=== PATIENT | female | born 1995 | race Caucasian/White ===

== ENCOUNTER 2017-07-29 16:51 | Emergency (ER) | payer MEDICAID ==
[~2017-07-29] VITALS: Ht 165.1 cm; Wt 131.5 kg
[~2017-07-29 16:51] MED LIST: PRENCAP61 PO
[2017-07-29 17:32] LABS: Urine Bilirubin Negative (Negative); Urine Blood Negative /uL (Negative); Urine Color Yellow (Yellow); Urine Glucose Normal (Normal); Urine Ketone Negative (Negative); Urine Mucus FEW (None Seen); Urine Nitrite Negative (Negative); Urine RBC <1 /hpf (0 - 4); Urine Squamous Epithelial Cell FEW /hpf (<5); Urine Urobilinogen Normal (Negative); Urine pH 5.5 (5.0-8.0)
[2017-07-29 18:20] LABS: Basophils # (auto) 0.2 uL; Basophils % (auto) 1.4 % (0.0-2.0); Eosinophils # (auto) 0.7 uL; Eosinophils % (auto) 6.7 % (0.0-7.0); Hematocrit 37.3 % (36.0-46.0); Hemoglobin 12.2 g/dL (12.2-16.2); Lymphocytes # (auto) 2.6 uL; Mean Corpuscular Hemoglobin 26.7 pg (28.0-32.0); Mean Corpuscular Hgb Conc. 32.7 g/dL (32.0-36.0); Mean Corpuscular Volume 81.5 fL (80.0-100.0); Mean Platelet Volume 7.6 fL (6.9-10.8); Monocytes # (auto) 0.6 uL; Monocytes % (auto) 5.5 % (0.0-12.0); Neutrophils # (auto) 6.8 uL; Neutrophils % (auto) 62.4 % (37.0-80.0); Nucleated Red Blood Cells % 0.1 %; Platelet Count (auto) 248 10^3/uL (140-450); Red Cell Distribution Width 15.1 % (11.8-14.3); White Blood Cell 10.9 10^3/uL (4.4-10.8)
[2017-07-29 18:37] LABS: Albumin 3.9 g/dL (3.4-5.0); BUN/Creatinine Ratio 9.2; Bilirubin, Total 0.4 mg/dL (0.2-1.0); Calcium 8.9 mg/dL (8.5-10.1); Potassium 3.7 mmol/L (3.5-5.1)
[2017-07-30 01:17] VITALS: BP 121/80
== END 2017-07-30 02:07 | disposition home or self-care (01) ==
LOC: ER 16:59
DX: K52.9 Noninfective gastroenteritis and colitis, unspecified (principal); I10 Essential (primary) hypertension; Z87.440 Personal history of urinary (tract) infections; Z88.1 Allergy status to other antibiotic agents
CPT/HCPCS: 36415; 74176; 80053; 81001; 81025; 84702; 85025

== ENCOUNTER 2018-01-21 15:36 | Emergency (ER) | payer MEDICAID ==
[~2018-01-21] VITALS: Ht 165.1 cm; Wt 114.3 kg
[2018-01-21 15:59] VITALS: BP 143/89
[2018-01-21 16:55] LABS: Urine Bacteria NONE SEEN /hpf (None Seen); Urine Blood Negative /uL (Negative); Urine WBC 14 /hpf (0 - 5)
== END 2018-01-21 18:11 | disposition home or self-care (01) ==
LOC: ER 15:42
DX: S39.012A Strain of muscle, fascia and tendon of lower back, initial encounter (principal); N39.0 Urinary tract infection, site not specified; E11.9 Type 2 diabetes mellitus without complications; I10 Essential (primary) hypertension; Z88.8 Allergy status to other drugs, medicaments and biological substances; X50.0XXA Overexertion from strenuous movement or load, initial encounter; Y93.89 Activity, other specified; Y92.89 Other specified places as the place of occurrence of the external cause; Y99.8 Other external cause status
CPT/HCPCS: 36415; 81001; 82962; 84702

== ENCOUNTER 2018-10-16 22:00 | Emergency (ER) | payer MEDICAID ==
[~2018-10-16] VITALS: Ht 162.6 cm; Wt 106.6 kg
[2018-10-16] MEDS ORDERED: SODIUM CHLORIDE 0.9% 1,000 ML IV ONE (23:15)
[2018-10-16] MEDS ORDERED: InsuLIN REG 1unit/0.01ml Soln (100units/ml) IV ONE ×2 (23:15)
[2018-10-16 23:18] LABS: Basophils # (auto) 0.1 uL; Basophils % (auto) 1.2 % (0.0-2.0); Eosinophils # (auto) 0.4 uL; Eosinophils % (auto) 4.4 % (0.0-7.0); Hematocrit 41.6 % (36.0-46.0); Hemoglobin 13.7 g/dL (12.2-16.2); Lymphocytes # (auto) 2.4 uL; Lymphocytes % (auto) 28.5 % (10.0-50.0); Mean Corpuscular Hemoglobin 27.7 pg (28.0-32.0); Mean Corpuscular Volume 83.8 fL (80.0-100.0); Monocytes # (auto) 0.3 uL; Monocytes % (auto) 3.9 % (0.0-12.0); Neutrophils # (auto) 5.2 uL; Platelet Count (auto) 243 10^3/uL (140-450); Red Blood Cells 4.96 10^6/uL (4.0-5.20); Red Cell Distribution Width 13.8 % (11.8-14.3); White Blood Cell 8.3 10^3/uL (4.4-10.8)
[2018-10-16 23:34] LABS: Albumin 3.9 g/dL (3.4-5.0); BUN/Creatinine Ratio 11.8; Calcium 8.9 mg/dL (8.5-10.1); Potassium 3.9 mmol/L (3.5-5.1)
[2018-10-16 23:37] LABS: Bilirubin, Total 0.3 mg/dL (0.2-1.0)
[2018-10-17 00:16] LABS: Urine Bacteria FEW /hpf (None Seen); Urine Blood Negative /uL (Negative); Urine Specific Gravity 1.024 (1.001-1.035); Urine WBC 1 /hpf (0 - 5)
[2018-10-17 03:06] VITALS: BP 119/81
== END 2018-10-17 03:27 | disposition home or self-care (01) ==
LOC: ER 22:04
DX: R10.9 Unspecified abdominal pain (principal); R94.5 Abnormal results of liver function studies; E11.9 Type 2 diabetes mellitus without complications; I10 Essential (primary) hypertension; Z88.8 Allergy status to other drugs, medicaments and biological substances
CPT/HCPCS: 36415; 76705; 80053; 80320; 81001; 82010; 82962; 85025; 96374; 99284; J1815; J7030

== ENCOUNTER 2019-03-06 18:58 | Emergency (ER) | payer MEDICAID ==
[~2019-03-06] VITALS: Ht 162.6 cm; Wt 115.7 kg
[2019-03-06 20:56] VITALS: BP 131/82
== END 2019-03-06 21:34 | disposition home or self-care (01) ==
LOC: ER 18:58
DX: S63.501A Unspecified sprain of right wrist, initial encounter (principal); W18.39XA Other fall on same level, initial encounter; Y93.89 Activity, other specified; Y92.89 Other specified places as the place of occurrence of the external cause; Y99.8 Other external cause status; M77.9 Enthesopathy, unspecified; E11.9 Type 2 diabetes mellitus without complications; I10 Essential (primary) hypertension; Z87.440 Personal history of urinary (tract) infections; Z88.1 Allergy status to other antibiotic agents
CPT/HCPCS: 29125; 73110; 81002; 81025; 82962

== ENCOUNTER 2021-03-13 20:37 | Emergency (ER) | payer MEDICAID ==
[~2021-03-13] VITALS: Ht 162.6 cm; Wt 95.3 kg
[2021-03-13 22:53] LABS: Calcium 9.4 mg/dL (8.5-10.1)
[2021-03-13 23:07] LABS: Bilirubin, Total 0.2 mg/dL (0.2-1.0); Total Protein 8.4 g/dL (6.4-8.2)
[2021-03-13 23:23] LABS: Lymphocytes # (auto) 3.6 10 ^3/uL (0.4-5.4); Mean Corpuscular Volume 75.1 fL (80.0-100.0)
[2021-03-13 23:25] LABS: Basophils # (auto) 0.1 10 ^3/uL (0-0.2); Basophils % (auto) 1.1 % (0.0-2.0); Eosinophils # (auto) 0.5 10 ^3/uL (0-0.8); Eosinophils % (auto) 5.1 % (0.0-7.0); Hematocrit 38.1 % (36.0-46.0); Hemoglobin 12.8 g/dL (12.2-16.2); Lymphocytes % (auto) 33.4 % (10.0-50.0); Mean Corpuscular Hemoglobin 25.3 pg (28.0-32.0); Mean Corpuscular Hgb Conc. 33.7 g/dL (32.0-36.0); Monocytes # (auto) 0.5 10 ^3/uL (0-1.3); Monocytes % (auto) 4.5 % (0.0-12.0); Neutrophils % (auto) 55.9 % (37.0-80.0); Nucleated Red Blood Cells % 0.1 %; Platelet Count (auto) 276 10^3/uL (140-450); Red Blood Cells 5.07 10^6/uL (4.0-5.20); Red Cell Distribution Width 15.5 % (11.8-14.3); White Blood Cell 10.7 10^3/uL (4.4-10.8)
[2021-03-13 23:36] LABS: INR 0.95 (0.9-1.15)
[2021-03-13 23:37] LABS: BUN/Creatinine Ratio 15.5
[2021-03-14] MEDS ORDERED: InsuLIN REG 1unit/0.01ml Soln (100units/ml) IV ONE (01:15)
[2021-03-14] MEDS ORDERED: ACETAMINOPHEN 325 MG TAB PO ONE (01:15)
[2021-03-14] MEDS ORDERED: KETOROLAC TROMETH 30 MG/ML 1ML VIAL IV ONE (01:30)
[2021-03-14] MEDS ORDERED: ONDANSETRON HCL 4 MG/2 ML VIAL IV ONE (02:15)
[2021-03-14 04:01] VITALS: BP 115/50
== END 2021-03-14 04:21 | disposition home or self-care (01) ==
LOC: ER 20:44
DX: N93.9 Abnormal uterine and vaginal bleeding, unspecified (principal); E11.65 Type 2 diabetes mellitus with hyperglycemia; R42 Dizziness and giddiness; I10 Essential (primary) hypertension; Z88.1 Allergy status to other antibiotic agents; Z79.899 Other long term (current) drug therapy; Z87.440 Personal history of urinary (tract) infections; Z98.890 Other specified postprocedural states
CPT/HCPCS: 36415; 80053; 82962; 83605; 83690; 84702; 85025; 85610; 96374; 96375; 99284; J1815; J1885; J2405; J7030

== ENCOUNTER 2021-03-18 21:05 | Emergency (ER) | payer MEDICAID ==
[~2021-03-18] VITALS: Ht 162.6 cm; Wt 95.7 kg
[2021-03-18 22:08] LABS: Basophils # (auto) 0.1 10 ^3/uL (0-0.2); Eosinophils # (auto) 0.5 10 ^3/uL (0-0.8); Eosinophils % (auto) 5.1 % (0.0-7.0); Hemoglobin 12.2 g/dL (12.2-16.2); Monocytes # (auto) 0.5 10 ^3/uL (0-1.3); Monocytes % (auto) 5.1 % (0.0-12.0); Neutrophils # (auto) 5.5 10 ^3/uL (1.6-8.6)
[2021-03-18 22:10] LABS: Basophils % (auto) 0.9 % (0.0-2.0); Hematocrit 37.4 % (36.0-46.0); Lymphocytes # (auto) 2.9 10 ^3/uL (0.4-5.4); Lymphocytes % (auto) 30.9 % (10.0-50.0); Mean Corpuscular Hemoglobin 25.3 pg (28.0-32.0); Mean Corpuscular Hgb Conc. 32.7 g/dL (32.0-36.0); Mean Corpuscular Volume 77.3 fL (80.0-100.0); Nucleated Red Blood Cells % 0.1 %; Platelet Count (auto) 271 10^3/uL (140-450); Red Blood Cells 4.84 10^6/uL (4.0-5.20); Red Cell Distribution Width 15.6 % (11.8-14.3); White Blood Cell 9.5 10^3/uL (4.4-10.8)
[2021-03-18 22:14] LABS: Urine Bacteria NONE SEEN /hpf (None Seen); Urine Blood 1+ /uL (Negative); Urine Specific Gravity 1.028 (1.001-1.035); Urine WBC 2 /hpf (0 - 5)
[2021-03-18 22:23] LABS: Albumin 3.9 g/dL (3.4-5.0); Calcium 9.2 mg/dL (8.5-10.1); Magnesium 1.7 mg/dL (1.6-2.6); Potassium 3.7 mmol/L (3.5-5.1)
[2021-03-18 22:26] LABS: Lactic Acid w/Reflex 2.5 mmol/L (0.4-2.0)
[2021-03-18 22:32] LABS: BUN/Creatinine Ratio 10.7; Bilirubin, Total 0.3 mg/dL (0.2-1.0); Total Protein 8.1 g/dL (6.4-8.2)
[2021-03-19] MEDS ORDERED: IOHEXOL 300 MG/ML 100ML BOTTLE IJ ONE (01:24)
[2021-03-19] MEDS ORDERED: ONDANSETRON HCL 4 MG/2 ML VIAL IV ONE (01:30)
[2021-03-19] MEDS ORDERED: SODIUM CHLORIDE 0.9% 1,000 ML IV ONE (01:30)
[2021-03-19] MEDS ORDERED: diphenhdrAMINE HCL 50 MG/1 ML VL IV ONE (03:15)
[2021-03-19] MEDS ORDERED: ACETAMINOPHEN 500 MG TAB PO ONE (03:45)
[2021-03-19] MEDS ORDERED: fentaNYL CITRATE 100 MCG/2 ML VL IV ONE (04:45)
[2021-03-19] MEDS ORDERED: METOCLOPRAMIDE HCL 5MG/ml INJ 2ml VIAL IV ONE (05:00)
[2021-03-19] MEDS ORDERED: InsuLIN REG 1unit/0.01ml Soln (100units/ml) SC ONE (05:45)
[2021-03-19 06:03] VITALS: BP 104/60
== END 2021-03-19 07:39 | disposition home or self-care (01) ==
LOC: ER 21:10
DX: N83.202 Unspecified ovarian cyst, left side (principal); R10.32 Left lower quadrant pain; R10.31 Right lower quadrant pain; R11.2 Nausea with vomiting, unspecified; E11.9 Type 2 diabetes mellitus without complications; J45.909 Unspecified asthma, uncomplicated; I10 Essential (primary) hypertension; F17.210 Nicotine dependence, cigarettes, uncomplicated; Z20.822 Contact with and (suspected) exposure to COVID-19; Z87.440 Personal history of urinary (tract) infections; Z98.890 Other specified postprocedural states; Z88.1 Allergy status to other antibiotic agents
CPT/HCPCS: 36415; 74177; 76856; 80053; 81001; 81025; 82962; 83605; 83735; 85025; 87426; 96361; 96372; 96374; 96375; 99285; J1200; J1815; J2405; J2765; J3010; J7030; Q9967

== ENCOUNTER 2022-05-18 21:57 | Emergency (ER) | payer MEDICAID ==
[2022-05-18 22:14] VITALS: BP 133/85
== END 2022-05-19 00:41 | disposition left against medical advice (07) ==
LOC: ER 21:57
DX: N93.8 Other specified abnormal uterine and vaginal bleeding (principal); Z53.21 Procedure and treatment not carried out due to patient leaving prior to being seen by health care provider

== ENCOUNTER 2022-08-15 03:57 | Emergency (ER) | payer MEDICAID ==
[~2022-08-15] VITALS: Ht 162.6 cm; Wt 94.3 kg
[2022-08-15 04:53] VITALS: BP 141/81
== END 2022-08-15 07:04 | disposition left against medical advice (07) ==
LOC: ER 03:58
DX: H92.02 Otalgia, left ear (principal); Z53.21 Procedure and treatment not carried out due to patient leaving prior to being seen by health care provider

== ENCOUNTER 2024-04-29 22:12 | Emergency (ER) | payer MEDICAID ==
[~2024-04-29] VITALS: Ht 165.1 cm; Wt 90.2 kg
[2024-04-29 22:12] VITALS: BP 117/58; PULSE 94; RESP 16; O2SAT 98
[2024-04-29 23:07] LABS: Urine Bacteria FEW /hpf (None Seen); Urine Blood 1+ /uL (Negative); Urine Clarity Clear (Clear); Urine Color Colorless (Yellow); Urine Protein, UAD Negative (Negative); Urine Specific Gravity 1.036 (1.001-1.035); Urine Urobilinogen Normal (Negative); Urine WBC 12 /hpf (0 - 5); Urine pH 5.5 (5.0-9.0)
[2024-04-29 23:09] LABS: Basophils # (auto) 0.1 10 ^3/uL (0-0.2); Basophils % (auto) 1.4 % (0.0-2.0); Eosinophils # (auto) 0.3 10 ^3/uL (0-0.8); Hematocrit 41.2 % (36.0-46.0); Hemoglobin 13.8 g/dL (12.2-16.2); Lymphocytes # (auto) 2.5 10 ^3/uL (0.4-5.4); Lymphocytes % (auto) 28.4 % (10.0-50.0); Mean Corpuscular Hemoglobin 28.4 pg (28.0-32.0); Mean Corpuscular Hgb Conc. 33.4 g/dL (32.0-36.0); Monocytes # (auto) 0.5 10 ^3/uL (0-1.3); Monocytes % (auto) 5.2 % (0.0-12.0); Neutrophils # (auto) 5.5 10 ^3/uL (1.6-8.6); Nucleated Red Blood Cells % 0.2 %; Red Blood Cells 4.85 10^6/uL (4.0-5.20); Red Cell Distribution Width 13.3 % (11.8-14.3); White Blood Cell 8.9 10^3/uL (4.4-10.8)
[2024-04-29 23:32] LABS: Alanine Aminotransferase 25 U/L (7-40); Albumin 4.5 g/dL (3.2-4.8); Alkaline Phosphatase 121 U/L (46-116); Anion Gap 11 (5-15); Aspartate Aminotransferase 9 U/L (13-40); Blood Urea Nitrogen 9 mg/dL (9-23); Carbon Dioxide 23 mmol/L (20-30); Chloride 95 mmol/L (98-107); Lipase 35 U/L (12-53); Potassium 3.8 mmol/L (3.5-5.1); Sodium 129 mmol/L (136-145)
[2024-04-29 23:33] LABS: Bilirubin, Total 0.3 mg/dL (0.2-1.0); Total Protein 7.3 g/dL (5.7-8.2)
[2024-04-29 23:41] LABS: Glucose 599 mg/dL (74-106)
== END 2024-04-30 01:45 | disposition left against medical advice (07) ==
LOC: ER 22:12
DX: R10.30 Lower abdominal pain, unspecified (principal); R10.2 Pelvic and perineal pain; R11.2 Nausea with vomiting, unspecified; Z53.21 Procedure and treatment not carried out due to patient leaving prior to being seen by health care provider
CPT/HCPCS: 36415; 80053; 81001; 83690; 84702; 85025

== ENCOUNTER 2024-05-08 16:18 | Emergency (ER) | payer MEDICAID ==
[~2024-05-08] VITALS: Ht 162.6 cm; Wt 94.2 kg
[2024-05-08 18:53] VITALS: BP 136/82; PULSE 98; RESP 16; TEMP 98.7; O2SAT 98
== END 2024-05-08 18:54 | disposition home or self-care (01) ==
LOC: ER 16:18
DX: Z48.00 Encounter for change or removal of nonsurgical wound dressing (principal); J45.909 Unspecified asthma, uncomplicated; E11.9 Type 2 diabetes mellitus without complications; I10 Essential (primary) hypertension; F17.210 Nicotine dependence, cigarettes, uncomplicated; Z88.1 Allergy status to other antibiotic agents

== ENCOUNTER 2025-09-16 00:08 | Inpatient (IN) | payer MEDICAID ==
[~2025-09-16] VITALS: Ht 162.6 cm; Wt 95.6 kg
[2025-09-16 02:54] LABS: Hematocrit 39.1 % (36.0-46.0); Hemoglobin 12.8 g/dL (12.2-16.2); Mean Corpuscular Hemoglobin 27.7 pg (28.0-32.0); Mean Corpuscular Volume 84.2 fL (80.0-100.0); Nucleated Red Blood Cells % 0.0 %
[2025-09-16 03:12] LABS: Alanine Aminotransferase 19 U/L (7-40); Albumin 4.5 g/dL (3.2-4.8); Anion Gap 10 (5-15); BUN/Creatinine Ratio 7.7 (10.0-20.0); Calcium 9.3 mg/dL (8.7-10.4); Carbon Dioxide 26 mmol/L (20-31); Chloride 100 mmol/L (98-107); Lipase 37 U/L (12-53); Potassium 3.9 mmol/L (3.5-5.1); Sodium 136 mmol/L (136-145); Total Protein 7.3 g/dL (5.7-8.2)
[2025-09-16 03:13] LABS: Bilirubin, Total 0.4 mg/dL (0.2-1.0)
[2025-09-16 03:18] LABS: Lactic Acid w/Reflex 2.4 mmol/L (0.4-2.0)
[2025-09-16 03:19] LABS: Alkaline Phosphatase 129 U/L (46-116); Blood Urea Nitrogen 6 mg/dL (9-23)
[2025-09-16 03:20] LABS: Glucose 490 mg/dL (74-106)
--- NOTE | 2025-09-16 04:12 | DVH ---
MEDICAL RECORDS NUMBER: [id number] PROCEDURE: CT CT AB PEL WO CON-NO ORAL OR IV DATE: 09/16/2025 03:34 AM HISTORY: RLQ PAIN TECHNIQUE: CT of the abdomen and pelvis is performed without IV contrast. CONTRAST: none Oral Contrast: No oral contrast was utilized. COMPARISON: CT ABD/PEL on DOS: 03/18/24 RADIATION DOSE INFORMATION: Automated exposure control dose reduction techniques were used. FINDINGS: Lung bases: Limited evaluation of the lung bases demonstrates no focal airspace process or pneumothorax. Mediastinum:Lower mediastinal structures appear unremarkable. Liver: The liver is normal in size. There is no focal liver lesion. Biliary ducts: There is no evidence of intrahepatic or extrahepatic biliary ductal dilatation. Gallbladder: No abnormality is seen of the gallbladder. Spleen: The spleen is normal in size without focal lesion. Stomach: The stomach appears unremarkable. Pancreas: The pancreas is unremarkable. Adrenal glands: The adrenal glands are unremarkable. Kidneys: The kidneys are normal in size and are symmetric. There is no evidence of hydronephrosis. No focal renal lesion is noted. Aorta and IVC: The aorta and IVC are patent and are normal in size. Mesenteric vessels: Major mesenteric vessels appear to be intact. Bowel: The visualized portions of the small and large bowel are normal in caliber. Appendix: The appendix is unremarkable. Pelvis:Pelvic structures appear unremarkable. Lymph nodes: There is no evidence of lymphadenopathy. Osseous structures: The osseous structures are intact. No lytic or blastic osseous lesion is noted. Free fluid/free air: None Other: There is a 1.8 cm nodular structure within the of the right lower quadrant of the abdomen posterior to the cecum. There is also 0.6 cm nodular structure in the mesentery adjacent to the sigmoid colon. Several small shotty lymph nodes are seen within the mesentery also. IMPRESSION: 1. There is a 1.8 cm nodular structure within the of the right lower quadrant of the abdomen posterior to the cecum. There is also 0.6 cm nodular structure in the mesentery adjacent to the sigmoid colon. Several small shotty lymph nodes are seen within the mesentery also.findings are lung zone significance. Reactive lymph nodes might causes this appearance. Neoplasia such as lymphoma could also be a concern. Further evaluation is needed.
[2025-09-16 04:13] LABS: Urine Protein, UAD Negative (Negative)
--- NOTE | 2025-09-16 04:15 | ED.PDOC ---
[employer] HPI Comments Past Medical History: Ovarian cyst, diabetes-on insulin Past Surgical History: Ovarian cyst removal, ROBERTO: HPI: Poor Historian. 30-year-old female presents to emergency depart for evaluation of two day history of right lower quadrant pain intermittent in nature nonradiating without any associated symptoms. Patient states she had similar symptoms in the past when she had an ovarian cyst problem. Patient is currently on her menstrual cycle. Denies any . Patient tried some ibuprofen at home without significant improvement. Past Medical History: Diabetes on insulin Past Surgical History: , ovarian cyst removal REVIEW OF SYSTEMS: CONSTITUTIONAL: Denies acute: fever, diaphoresis, chills, generalized weakness. HEAD: Denies acute: headache, photophobia Eyes: Denies acute: Double vision, vision loss, eye pain, eye discharge. EARS: Denies acute: tinnitus, hearing loss, ear discharge, ear pain, THROAT: Denies acute: sore throat, swelling, difficulty swallowing , pain with swallowing, change in voice. NECK: Denies acute: neck pain, neck swelling, stiff neck. HEART: Denies acute : chest pain, palpitations, LUNGS: Denies acute: SOB, wheezing, cough, hemoptysis ABDOMEN: Denies acute: Nausea, Vomiting, diarrhea, melena , hematemesis, hematochezia SKIN: Denies acute: rash, redness, lesions, itchiness. EXTREMITIES: Denies acute: calf pain, numbness, tingling, weakness, denies pain in extremity. Denies acute: Low back pain. Neuro: Denies acute: focal neurological deficit, motor or sensory focal neurological deficit, tremors, seizure like activity, confusion, dizziness, change in mental status, loss of bowel or bladder function, cauda equina like symptoms. : Denies acute: dysuria, hematuria, flank pain, increase in urinary frequency. PSYCH: Denies acute: hallucination, suicidal ideation, homicidal ideation. FEMALE: Denies acute: abnormal vaginal bleeding, foul odor, unusual discharge. PHYSICAL EXAM: General: ----moderate----acute distress, awake and alert. Head: normocephalic, atraumatic. No raccoon's eyes, no pang sign. Neck: supple, trachea is midline, no swelling. Throat: Normal phonation. Eyes:, no erythema, no purulent discharge, no proptosis, no icterus. Heart: regular rate, regular rhythm, no significant murmur appreciated. Lungs: no apparent respiratory distress, Able to speak in full sentences. No wheezing, no rhonchi, no crackles. No stridors Clear to auscultation bilaterally. Abdomen: Right lower quadrant tender to palpation, non distended, soft, no guarding, no rebound, + bowel sounds. Neuro: Awake, Alert, oriented to name, self, situation, follows commands GCS=15. Speech is normal. Skin: no petechia, no purpura, no cyanosis, non-pale, not jaundice. Lower extremities: --no - Pitting edema no deformity, no focal swelling, no calf TTP. Makes eye contact. moves all four extremities. Face: no apparent facial droop. Ambulating in the ED independently. ED COURSE: DISCLAIMER: This medical document was created using an electronic medical record system with voice recognition software and computerized dictation system. Although this document has been carefully reviewed, there might still be some phonetic and typographical errors. Occasional wrong-word or "sound-alike" substitutions may have occurred due to the inherent limitations of voice recognition software. These areas are purely typographical due to imperfections of the software programs and do not reflect any compromise in the patient's medical care. Please read the chart carefully and recognize, using context, where these substitutions have occurred. Chief Complaint: Abdominal Pain Time Seen by MD: 04:00 Allergies: Coded Allergies: Cephalexin (Verified Allergy, Unknown, 08/21/14) Home Meds Reported Medications Vit W/ Fe Carbonyl-Fe (Pnv-Total) Cap, 1 TAB PO DAILYP, CAP 08/21/14 Information Source: Patient Past Medical History PAST MEDICAL HISTORY: Asthma, DM, HTN, UTI'S Surgical History: CERTIFIED PROFESSIONAL MIDWIFE History: No Pertinent CERTIFIED PROFESSIONAL MIDWIFE History Family History Family History: Unknown Social History Smoker: Cigarettes, Less Than 1 Pack/Day Alcohol: Denies ETOH Use Drugs: Denies Drug Use Lives In: Home Was a procedure done? Was a procedure done?: No Differential Diagnosis (CERTIFIED PROFESSIONAL MIDWIFE) Vaginal Bleeding: N/A Comments DDX include Diverticulitis, colitis, gastroenteritis, acute abdomen, SBO, enteritis, constipation, volvulus, appendicitis, Gallbladder disease, choledocolithiasis, ascending cholangitis, pancreatitis, intraAbdominal mass/neoplasm, hepatitis, UTI, pylonephritis, kidney stone, aneurysm, dissection, Inflammatory bowel disease, gastroparesis, ischemic bowel,,,,,, Food poisoning, bacterial/parasitic/viral etiology, trauma, diabetes DKA, ovarian torsion, ovarian cyst/mass, tubo-ovarian abscess, , ectopic , PID, STD. X-Ray, Labs, Meds, VS Vital Signs Date Time Temp Pulse Resp B/P (MAP) Pulse Ox O2 Delivery O2 Flow Rate FiO2 09/16/25 04:31 97.9 74 20 140/80 (100) 99 97.9 09/16/25 00:16 97.7 80 22 149/93 100 97.7 Lab Test 09/16/25 04:03 09/16/25 03:51 09/16/25 02:05 Range/Units Lactic Acid Level 1.1 2.4 *H 0.4-2.0 mmol/L Urine Color Colorless Yellow Urine Clarity Clear Clear Urine pH 7.0 5.0-9.0 Urine Specific Meacham 1.038 H 1.001-1.035 Urine Protein Negative Negative Urine Ketones Negative Negative Urine Blood 3+ H Negative /uL Urine Nitrite Negative Negative Urine Bilirubin Negative Negative Urine Urobilinogen Normal Negative mg/dL Urine Leukocyte Esterase Negative Negative /uL Urine RBC 231 0 - 4 /hpf Urine Microscopic WBC 4 0-5 /HPF Urine Squamous Epithelial Cells Few <5 /hpf Urine Bacteria None seen None Seen /hpf Urine Glucose 4+ H Normal mg/dL Urine Test Negative Negative Urine Opiates Screen Neg NEGATIVE Urine Fentanyl Screen Neg NEGATIVE Urine Barbiturates Screen Neg NEGATIVE Urine Phencyclidine Screen Neg NEGATIVE Urine Amphetamines Screen Neg NEGATIVE Urine Benzodiazepines Screen Neg NEGATIVE Urine Cocaine Screen Neg NEGATIVE Urine Cannabinoids Screen Neg NEGATIVE White Blood Count 7.9 4.4-10.8 10^3/uL Red Blood Count 4.65 4.0-5.20 10^6/uL Hemoglobin 12.8 12.2-16.2 g/dL Hematocrit 39.1 36.0-46.0 % Mean Corpuscular Volume 84.2 80.0-100.0 fL Mean Corpuscular Hemoglobin 27.7 L 28.0-32.0 pg Mean Corpuscular Hemoglobin Concent 32.8 32.0-36.0 g/dL Red Cell Distribution Width 13.6 11.8-14.3 % Platelet Count 249 140-450 10^3/uL Mean Platelet Volume 8.2 6.9-10.8 fL Neutrophils (%) (Auto) 63.3 37.0-80.0 % Lymphocytes (%) (Auto) 26.7 10.0-50.0 % Monocytes (%) (Auto) 4.5 0.0-12.0 % Eosinophils (%) (Auto) 4.2 0.0-7.0 % Basophils (%) (Auto) 1.3 0.0-2.0 % Neutrophils # (Auto) 5.0 1.6-8.6 10 ^3/uL Lymphocytes # (Auto) 2.1 0.4-5.4 10 ^3/uL Monocytes # (Auto) 0.4 0-1.3 10 ^3/uL Eosinophils # (Auto) 0.3 0-0.8 10 ^3/uL Basophils # (Auto) 0.1 0-0.2 10 ^3/uL Nucleated Red Blood Cells 0.0 % Sodium Level 136 136-145 mmol/L Potassium Level 3.9 3.5-5.1 mmol/L Chloride Level 100 98-107 mmol/L Carbon Dioxide Level 26 20-31 mmol/L Anion Gap 10 5-15 Blood Urea Nitrogen 6 L 9-23 mg/dL Creatinine 0.78 0.550-1.02 mg/dL Glomerular Filtration Rate Calc 105 >90 mL/min BUN/Creatinine Ratio 7.7 L 10.0-20.0 Serum Glucose 490 *H 74-106 mg/dL Calcium Level 9.3 8.7-10.4 mg/dL Total Bilirubin 0.4 0.2-1.0 mg/dL Aspartate Amino Transferase (AST) 8 L 13-40 U/L Alanine Aminotransferase (ALT) 19 7-40 U/L Alkaline Phosphatase 129 H 46-116 U/L Total Protein 7.3 5.7-8.2 g/dL Albumin 4.5 3.2-4.8 g/dL Lipase 37 12-53 U/L Current Medications Medications (Trade) Dose Ordered Sig/Nathan Route Start Time Stop Time Status Last Admin Sodium Chloride 1,000 ml @ 1,000 mls/hr Q1H ONCE IV 09/16/25 03:30 09/16/25 04:29 DC 09/16/25 04:41 Insulin Human Regular (InsuLIN R) 5 units ONCE ONCE IV 09/16/25 03:30 09/16/25 03:33 DC 09/16/25 05:52 Ketorolac Tromethamine (Toradol Injection) 30 mg ONCE ONCE IV 09/16/25 04:45 09/16/25 04:46 DC 09/16/25 05:50 [place] [address] Ph: [phone] DIAGNOSTIC IMAGING Diagnostic Imaging Report : [id number] Signed PATIENT: ACCT: [id number] UNIT: [id number] : 1995 LOC: ER ROOM / BED: / AGE / SEX: 30 / F ADM STATUS: REG ER SERVICE [id number] ORDERING PHYSICIAN: REAGAN MEJIA DO PROCEDURE(s): PELUS - PELVIC REASON: RLQ PAIN ORDER NUMBER(s): [id number], ACCESSION NUMBER(s): [id number] MEDICAL RECORDS NUMBER: [id number] PROCEDURE: US PELVIC Date: 09/16/2025 05:09 AM HISTORY: RLQ PAIN COMPARISONS: None TECHNIQUE:Transabdominal scanning is utilized. FINDINGS: Uterus: The uterus measures 10 cm by 4 cm by 3.4 cm. The endometrial stripe measures 3 mm. Right Ovary: The right ovary appears unremarkable. Arterial and venous vascular color and waveforms are with Doppler imaging. Left Ovary: The left ovary appears unremarkable.Arterial and venous vascular color and waveforms are with Doppler imaging. Adnexa: No adnexal masses are seen. No free fluid is seen. IMPRESSION: 1. No abnormality is seen. ATED BY: SALAZAR CARLTON MD DICTATED DATE/TIME: 09/16/25537 SIGNED BY: SALAZAR CARLTON MD SIGNED DATE/TIME: 09/16/25537 CC: [address] [address] Ph: [phone] DIAGNOSTIC IMAGING Diagnostic Imaging Report : [id number] Signed PATIENT: ACCT: [id number] UNIT: [id number] : 1995 LOC: ER ROOM / BED: / AGE / SEX: 30 / F ADM STATUS: REG ER SERVICE [id number] ORDERING PHYSICIAN: REAGAN MEJIA DO PROCEDURE(s): ABPL - CT AB PEL WO CON-NO ORAL OR IV REASON: RLQ PAIN ORDER NUMBER(s): [id number], ACCESSION NUMBER(s): [id number] MEDICAL RECORDS NUMBER: [id number] PROCEDURE: CT CT AB PEL WO CON-NO ORAL OR IV DATE: 09/16/2025 03:34 AM HISTORY: RLQ PAIN TECHNIQUE: CT of the abdomen and pelvis is performed without IV contrast. CONTRAST: none Oral Contrast: No oral contrast was utilized. COMPARISON: CT ABD/PEL on DOS: 03/18/24 RADIATION DOSE INFORMATION: Automated exposure control dose reduction techniques were used. FINDINGS: Lung bases: Limited evaluation of the lung bases demonstrates no focal airspace process or pneumothorax. Mediastinum:Lower mediastinal structures appear unremarkable. Liver: The liver is normal in size. There is no focal liver lesion. Biliary ducts: There is no evidence of intrahepatic or extrahepatic biliary ductal dilatation. Gallbladder: No abnormality is seen of the gallbladder. Spleen: The spleen is normal in size without focal lesion. Stomach: The stomach appears unremarkable. Pancreas: The pancreas is unremarkable. Adrenal glands: The adrenal glands are unremarkable. Kidneys: The kidneys are normal in size and are symmetric. There is no evidence of hydronephrosis. No focal renal lesion is noted. Aorta and IVC: The aorta and IVC are patent and are normal in size. Mesenteric vessels: Major mesenteric vessels appear to be intact. Bowel: The visualized portions of the small and large bowel are normal in caliber. Appendix: The appendix is unremarkable. Pelvis:Pelvic structures appear unremarkable. Lymph nodes: There is no evidence of lymphadenopathy. Osseous structures: The osseous structures are intact. No lytic or blastic osseous lesion is noted. Free fluid/free air: None Other: There is a 1.8 cm nodular structure within the of the right lower quadrant of the abdomen posterior to the cecum. There is also 0.6 cm nodular structure in the mesentery adjacent to the sigmoid colon. Several small shotty lymph nodes are seen within the mesentery also. IMPRESSION: 1. There is a 1.8 cm nodular structure within the of the right lower quadrant of the abdomen posterior to the cecum. There is also 0.6 cm nodular structure in the mesentery adjacent to the sigmoid colon. Several small shotty lymph nodes are seen within the mesentery also.findings are lung zone significance. Reactive lymph nodes might causes this appearance. Neoplasia such as lymphoma could also be a concern. Further evaluation is needed. ATED BY: SALAZAR CARLTON MD DICTATED DATE/TIME: 09/16/25408 SIGNED BY: SALAZAR CARLTON MD SIGNED DATE/TIME: 09/16/25408 CC: Time of 1ST Reevaluation: 04:00 Reevaluation 1ST: Unchanged Patient Education/Counseling: Diagnosis, Treatment Family Education/Counseling: No Family Present Comments MDM: patient presented with the above HPI.--abdominal pain----workup was initiated. patient was found with the above mentioned diagnosis. the following medications were ordered: please refer to order lists of meds and tests obtained by myself Dr. Mejia. Patient ED course and VS have been stabilized. Patient has been reassessed in the ED and remained in a stable condition. Pertinent incidental findings were discussed with the patient and/or family. Patient/family voices understanding and is agreeable with plan. Patient has been observed in the ED adequate length of time to insure improvement/stability. Escalation of care considered: Consideration of escalation to observation or admission Patient was ADMITTED to the medicine team for further evaluation and treatment of their presentation. All the reports of any imaging studies that were ordered by myself were reviewed by myself. Departure 1 Departure Time of Disposition: 04:41 Impression: Primary Impression: Right lower quadrant pain Additional Impressions: Abnormal finding on CT scan Hyperglycemia due to diabetes mellitus Elevated lactic acid level Disposition: ADMITTED INPATIENT Admit to: Tele Condition: Guarded Discharged With: Self Critical Care Note Critical Care Time?: No I personally scribed for REAGAN MEJIA DO ([email or web address]) on 09/16/25 at 04:15. Electronically submitted by Laurent Tony [email or web address]). I personally scribed for REAGAN MEJIA DO ([email or web address]) on 09/16/25 at 05:53. Electronically submitted by Laurent Tony [email or web address]). REAGAN MEJIA DO Sep 16, 2025 04:15
[2025-09-16 04:19] LABS: Amphetamine Screen, Urine Neg (NEGATIVE); Barbiturate Scree,Urine Neg (NEGATIVE); Benzodiazephine Screen, Urine Neg (NEGATIVE); Cannabinoid Screen, Urine Neg (NEGATIVE); Cocaine Screen, Urine Neg (NEGATIVE); Opiate Scree,Urine Neg (NEGATIVE); Phencyclidine Screen, Urine Neg (NEGATIVE)
[2025-09-16] MEDS: SODIUM CHLORIDE 0.9% 1,000 ML IV ONE (04:41)
--- NOTE | 2025-09-16 05:41 | DVH ---
MEDICAL RECORDS NUMBER: [id number] PROCEDURE: US PELVIC Date: 09/16/2025 05:09 AM HISTORY: RLQ PAIN COMPARISONS: None TECHNIQUE:Transabdominal scanning is utilized. FINDINGS: Uterus: The uterus measures 10 cm by 4 cm by 3.4 cm. The endometrial stripe measures 3 mm. Right Ovary: The right ovary appears unremarkable. Arterial and venous vascular color and waveforms are with Doppler imaging. Left Ovary: The left ovary appears unremarkable.Arterial and venous vascular color and waveforms are with Doppler imaging. Adnexa: No adnexal masses are seen. No free fluid is seen. IMPRESSION: 1. No abnormality is seen.
[2025-09-16] MEDS: KETOROLAC TROMETH 30 MG/ML 1ML VIAL IV ONE (05:50)
[2025-09-16] MEDS: InsuLIN REG 1unit/0.01ml Soln (100units/ml) IV ONE ×2 (05:52→12:54)
[2025-09-16] MEDS: MORPHINE SULFATE 4 MG/ML SYR/VIAL IV ONE (08:42)
[2025-09-16] MEDS: ONDANSETRON HCL 4 MG/2 ML VIAL IV ONE (08:42)
--- NOTE | 2025-09-16 12:31 | DVHHPRES ---
History of Present Illness Resident Creating Document: PATITO LEMUS RESIDENT History of Present Illness This is a 33-year-old female with past medical history of depression, anxiety disorder, type 2 diabetes mellitus on insulin, ovarian cyst s/p removal [address] [facility] visited ER today with a complaint of intermittent right lower quadrant abdominal pain for last 2 days which is suddenly worsen around 11:00 p.m. day before admission. Abdominal pain was8- 9/10 intensity, localized, non-radiating, no aggravating or relieving factors. Patient had similar symptoms before. Patient had history of ovarian cyst removal unknown side 2 years ago. Patient denies any fever, vomiting, diarrhea, constipation, dysuria, any recent trauma, sick contacts or travel outside. Last LMP 12 September 2025. Past medical history: Dm 2 on insulin, anxiety disorder, depression. Past surgical history: Ovarian cyst removal unknown side 2 years ago Family history: Noncontributory Personal history: Denies any illicit drug use, EtOH use Allergy: Cephalexin PCP: [facility]. home medication; naproxen, lorazepam, escitalopram, Ativan, hydroxyzine. Review of Systems Constitutional: Yes: Malaise; No: Fever, Chills, Sweats, Weakness, Other Eyes: No: Pain, Vision change, Conjunctivae inflammation, Eyelid inflammation, Other, Redness ENT: No: Ear pain, Ear discharge, Nose pain, Nose discharge, Nose congestion, Mouth pain, Mouth swelling, Throat pain, Throat swelling, Other Respiratory: No: Cough, Dry, Shortness of breath, SOB with excertion, Wheezing, Hemoptysis, Pleuritic Pain, Sputum, Wheezing, Other Cardiovascular: No: Chest Pain, Palpitations, Orthopnea, Paroxysmal Noc. Dysp mir, Edema, Lt Headedness, Other Gastrointestinal: Nausea, Abdominal Pain; No: Vomiting, Diarrhea, Constipation, Melena, Hematochezia, Other Genitourinary: No Dysuria, No Frequency, No Incontinence, No Hematuria, No Retention, No Other Musculoskeletal: No: other, neck pain, shoulder pain, arm pain, back pain, hand pain, leg pain, foot pain Skin: No: Rash, Lesions, Jaundice, Bruising, Other Neurological: No: Weakness, Numbness, Incoordination, Change in speech, Confusion, Seizures, Other Allergies: Coded Allergies: Cephalexin (Verified Allergy, Unknown, 10/21/14) Medications Current Medications Medications Dose Ordered Sig/Nathan Route Start Time Stop Time Status Last Admin Dose Admin Sodium Chloride 1,000 ml @ 120 mls/hr Q8H20M IV 09/16/25 12:15 UNV Ondansetron HCl 4 mg Q4HP PRN IV 09/16/25 12:15 UNV Morphine Sulfate 2 mg Q4HPRN PRN IV 09/16/25 12:15 UNV Insulin Human Lispro AC SC 09/16/25 17:00 UNV Exam Vital Signs Vital Signs Date Time Temp Pulse Resp B/P (MAP) Pulse Ox O2 Delivery O2 Flow Rate FiO2 09/16/25 12:11 97.8 70 16 141/93 (109) 98 97.8 09/16/25 08:39 Room Air 09/16/25 07:19 0 21 General Appearance: Alert, Oriented X3, moderate distress, Other (Appearance obese) HEENT: Atraumatic, PERRLA Respiratory: Clear to auscultation, Normal air movement Cardiovascular: Regular rate, Normal S1, Normal S2, No murmurs Abdominal: Normal bowel sounds, Soft, Other (Right lower quadrant tender on deep palpation) Extremities: No clubbing, No cyanosis, No edema Skin: No rashes, No breakdown Neuro: Normal gait, Strength at 5/5 X4 ext, Sensation intact Psych/Mental Status: Mood NL Labs/Xrays Labs Test 09/16/25 04:03 09/16/25 03:51 09/16/25 02:05 Range/Units Lactic Acid Level 1.1 0.4-2.0 mmol/L Urine Color Colorless Yellow Urine Clarity Clear Clear Urine pH 7.0 5.0-9.0 Urine Specific [place] 1.038 H 1.001-1.035 Urine Protein Negative Negative Urine Ketones Negative Negative Urine Blood 3+ H Negative /uL Urine Nitrite Negative Negative Urine Bilirubin Negative Negative Urine Urobilinogen Normal Negative mg/dL Urine Leukocyte Esterase Negative Negative /uL Urine RBC 231 0 - 4 /hpf Urine Microscopic WBC 4 0-5 /HPF Urine Squamous Epithelial Cells Few <5 /hpf Urine Bacteria None seen None Seen /hpf Urine Glucose 4+ H Normal mg/dL Urine Test Negative Negative Urine Opiates Screen Neg NEGATIVE Urine Fentanyl Screen Neg NEGATIVE Urine Barbiturates Screen Neg NEGATIVE Urine Phencyclidine Screen Neg NEGATIVE Urine Amphetamines Screen Neg NEGATIVE Urine Benzodiazepines Screen Neg NEGATIVE Urine Cocaine Screen Neg NEGATIVE Urine Cannabinoids Screen Neg NEGATIVE White Blood Count 7.9 4.4-10.8 10^3/uL Red Blood Count 4.65 4.0-5.20 10^6/uL Hemoglobin 12.8 12.2-16.2 g/dL Hematocrit 39.1 36.0-46.0 % Mean Corpuscular Volume 84.2 80.0-100.0 fL Mean Corpuscular Hemoglobin 27.7 L 28.0-32.0 pg Mean Corpuscular Hemoglobin Concent 32.8 32.0-36.0 g/dL Red Cell Distribution Width 13.6 11.8-14.3 % Platelet Count 249 140-450 10^3/uL Mean Platelet Volume 8.2 6.9-10.8 fL Neutrophils (%) (Auto) 63.3 37.0-80.0 % Lymphocytes (%) (Auto) 26.7 10.0-50.0 % Monocytes (%) (Auto) 4.5 0.0-12.0 % Eosinophils (%) (Auto) 4.2 0.0-7.0 % Basophils (%) (Auto) 1.3 0.0-2.0 % Neutrophils # (Auto) 5.0 1.6-8.6 10 ^3/uL Lymphocytes # (Auto) 2.1 0.4-5.4 10 ^3/uL Monocytes # (Auto) 0.4 0-1.3 10 ^3/uL Eosinophils # (Auto) 0.3 0-0.8 10 ^3/uL Basophils # (Auto) 0.1 0-0.2 10 ^3/uL Nucleated Red Blood Cells 0.0 % Sodium Level 136 136-145 mmol/L Potassium Level 3.9 3.5-5.1 mmol/L Chloride Level 100 98-107 mmol/L Carbon Dioxide Level 26 20-31 mmol/L Anion Gap 10 5-15 Blood Urea Nitrogen 6 L 9-23 mg/dL Creatinine 0.78 0.550-1.02 mg/dL Glomerular Filtration Rate Calc 105 >90 mL/min BUN/Creatinine Ratio 7.7 L 10.0-20.0 Serum Glucose 490 *H 74-106 mg/dL Calcium Level 9.3 8.7-10.4 mg/dL Total Bilirubin 0.4 0.2-1.0 mg/dL Aspartate Amino Transferase (AST) 8 L 13-40 U/L Alanine Aminotransferase (ALT) 19 7-40 U/L Alkaline Phosphatase 129 H 46-116 U/L Total Protein 7.3 5.7-8.2 g/dL Albumin 4.5 3.2-4.8 g/dL Lipase 37 12-53 U/L SEPSIS Sepsis Screen Date sepsis recognized/suspect: Sep 16, 2025 Time Sepsis recognized/suspect: 002 Recent Procedure: No On Antibiotic Therapy: No Respiratory Rate >20: Yes Heart Rate >90: No Temp<36 C (96.8 F) or >38.3 C: No SBP <90 or MAP <65 mmHG: No New Acute Mental Status Change: No Is the patient on CPAP, BIPAP,: No Physician Orders Admit (09/16/25 12:03) Code Status (09/16/25 12:03) Full Liq Diet (09/16/25 Lunch) Sodium Chloride 0.9% (09/16/25 12:15) Ondansetron Hcl (Zofran) (09/16/25 12:15) Morphine Sulfate Injection (09/16/25 12:15) Notify Md Of Changes From Base (09/16/25 12:03) Insulin R (Human) (Insulin R) (09/16/25 12:15) Insulin Lispro (Human) (Humalog) (09/16/25 17:00) Vital Signs Date Time Temp Pulse Resp B/P (MAP) Pulse Ox O2 Delivery O2 Flow Rate FiO2 09/16/25 12:11 97.8 70 16 141/93 (109) 98 97.8 09/16/25 09:28 68 16 126/74 09/16/25 08:42 67 19 131/90 09/16/25 08:39 97.9 67 17 131/90 (104) 98 97.9 09/16/25 08:39 67 17 98 Room Air 09/16/25 07:19 Room Air* 0 21 09/16/25 07:15 97.9 78 15 114/74 (87) 99 97.9 09/16/25 04:31 97.9 74 20 140/80 (100) 99 97.9 Laboratory Tests Test 09/16/25 02:05 09/16/25 04:03 Lactic Acid Level 2.4 mmol/L (0.4-2.0) *H 1.1 mmol/L (0.4-2.0) White Blood Count 7.9 10^3/uL (4.4-10.8) Medications Medications Dose Ordered Sig/Nathan Route Start Time Stop Time Status Last Admin Dose Admin Insulin Human Regular 5 units ONCE ONCE IV 09/16/25 03:30 09/16/25 03:33 DC 09/16/25 05:52 5 UNITS Ketorolac Tromethamine 30 mg ONCE ONCE IV 09/16/25 04:45 09/16/25 04:46 DC 09/16/25 05:50 30 MG Morphine Sulfate 4 mg ONCE ONCE IV 09/16/25 08:30 09/16/25 08:32 DC 09/16/25 08:42 4 MG Ondansetron HCl 4 mg ONCE ONCE IV 09/16/25 08:30 09/16/25 08:32 DC 09/16/25 08:42 4 MG Sodium Chloride 1,000 ml @ 1,000 mls/hr Q1H ONCE IV 09/16/25 03:30 09/16/25 04:29 DC 09/16/25 04:41 1,000 MLS/HR Assessment/Plan Assessment/Plan Intractable abdominal pain likely due to mesenteric lymphadenitis Lymphadenopathy likely lymphoma Rule out colon cancer In ER patient received ondansetron, morphine, ketorolac, insulin regular 5 units, NSS urine toxicology negative lab shows no leukocytosis during admission blood glucose 490 lactic acidosis 2.4, trending down to 1.1 lipase [address] abdomen shows 1.8 cm nodular structure right lower quadrant of abdomen posterior to cecum, 0.6 cm nodular structure in the mesentery adjacent to sigmoid colon. Several small shotty lymph node in the mesentery likely reactive lymph node. ultrasound pubic showed no abnormality. Clear liquid diet IVF Pain management Antiemetic Monitor labs Follow ESR 11 , CRP 0.59, procalcitonin pending Started empiric antibiotic ceftriaxone and metronidazole, deescalate as needed GI consult to rule out retrocecal lymphadenopathy LDH, CEA, occult blood test Hyperosmolar hyperglycemic state Type 2 diabetes mellitus with hyperglycemia During admission CMP blood sugars- 450> 365 Patient on Humalog 15 units insulin-home medication Beta hydroxybutyric acid level 0.135 Urine shows ketones negative Regular insulin 10 units stat A1c 12.3 Insulin sliding scale Started basal bolus insulin Lactic acidosis Lactic acid level 2.4, trending down to 1.1 Continue IVF Hematuria likely due to menstruation UA showed UA showed 3+ blood, RBC 231 LMP September 12, 2025 Anxiety and depression disorder Home medication - escitalopram Hydroxyzine bedtime and Ativan as needed Morbid obesity, BMI 36.4 Lifestyle modification Low-fat diet Lipid profile Diet: Full liquid and advanced gradually carbonate consistent diet GI prophylaxis: Pantoprazole DVT prophylaxis: Patient ambulating, SCD Goals of care discussions. More than 29 minute spent with patient. Full code status. Case discussed with Dr. Kee. Plan discussed with: Patient, Other (Nurse) My Orders Orders - PATITO LEMUS Procedure Category Date Status Time Admit ADMIT 09/16/25 Transmitted 12:03 Code Status CODE 09/16/25 Transmitted 12:03 Full Liq Diet DIET 09/16/25 Transmitted Lunch Sodium Chloride 0.9% PHA 09/16/25 Logged 12:15 Ondansetron Hcl PHA 09/16/25 Logged (Zofran) 12:15 Morphine Sulfate PHA 09/16/25 Logged Injection 12:15 Notify Of Changes VINNY 09/16/25 In Process From Base 12:03 Insulin R (Human) PHA 09/16/25 Logged (Insulin R) 12:15 Insulin Lispro PHA 09/16/25 Logged (Human) (Humalog) 17:00 Date of Service: Sep 16, 2025 Billing Provider: CHIKI KEE MD Common Visit Codes: [id number] INP/OBS CARE (HIGH) Secondary Visit Codes: [id number] CARE PLAN 30 MINUTES PATITO LEMUS Sep 16, 2025 12:31
[2025-09-16 12:35] VITALS: BP 148/84; PULSE 69; RESP 19; TEMP 97.9; O2SAT 100
[2025-09-16] MEDS ORDERED: DEXTROSE (50%) 50ML SYRG IV SCH (12:45)
[2025-09-16 13:00] VITALS: BP 148/84; PULSE 69; RESP 19; TEMP 97.9; O2SAT 100
[2025-09-16] MEDS: MORPHINE SULFATE INJ 2 MG/ml SYRG IV PRN (13:00)
[2025-09-16] MEDS: SODIUM CHLORIDE 0.9% 1,000 ML IV SCH (13:00)
[2025-09-16 13:41] LABS: Hematocrit 37.9 % (36.0-46.0); Hemoglobin 12.2 g/dL (12.2-16.2); Mean Corpuscular Hemoglobin 27.2 pg (28.0-32.0); Mean Corpuscular Volume 84.0 fL (80.0-100.0); Nucleated Red Blood Cells % 0.0 %
[2025-09-16 13:43] LABS: Chloride 104 mmol/L (98-107); Potassium 4.1 mmol/L (3.5-5.1); Sodium 141 mmol/L (136-145)
[2025-09-16 13:44] LABS: Anion Gap 10 (5-15); Calcium 9.0 mg/dL (8.7-10.4); Carbon Dioxide 27 mmol/L (20-31)
[2025-09-16 13:49] LABS: BUN/Creatinine Ratio 13.4 (10.0-20.0); Blood Urea Nitrogen 9 mg/dL (9-23)
[2025-09-16 13:53] LABS: Glucose 365 mg/dL (74-106)
[2025-09-16 16:30] VITALS: BP 136/83; PULSE 74; RESP 21; TEMP 98.3; O2SAT 89
[2025-09-16] MEDS: INSULIN LISPRO (HUMAN) 100 UNITS/ML ML SC SCH ×2 (17:00)
[2025-09-16] MEDS: ACCU-CHEK COMFORT CURVE STRIP VI SCH (17:00)
[2025-09-16 20:00] VITALS: O2SAT 97
[2025-09-16 21:00] VITALS: BP 113/67; PULSE 77; RESP 19; TEMP 98.3; O2SAT 97
[2025-09-16] MEDS: INSULIN LANTUS (GLARGINE) 1 /0.01ml (100units/ml) SC SCH (21:26)
[2025-09-17 01:00] VITALS: BP 107/78; PULSE 68; RESP 18; TEMP 98; O2SAT 97
[2025-09-17 08:06] LABS: Potassium 3.7 mmol/L (3.5-5.1); Sodium 138 mmol/L (136-145)
[2025-09-17 08:07] LABS: Anion Gap 8 (5-15); Carbon Dioxide 23 mmol/L (20-31)
[2025-09-17 08:09] LABS: Calcium 8.7 mg/dL (8.7-10.4); Chloride 107 mmol/L (98-107)
[2025-09-17 08:12] LABS: Glucose 239 mg/dL (74-106)
[2025-09-17 08:13] LABS: BUN/Creatinine Ratio 11.5 (10.0-20.0); Blood Urea Nitrogen 6 mg/dL (9-23)
[2025-09-17 08:16] LABS: Hematocrit 37.2 % (36.0-46.0); Hemoglobin 12.5 g/dL (12.2-16.2); Mean Corpuscular Hemoglobin 28.0 pg (28.0-32.0); Mean Corpuscular Volume 83.0 fL (80.0-100.0); Nucleated Red Blood Cells % 0.1 %
[2025-09-17 09:00] VITALS: BP 115/79; PULSE 71; RESP 16; TEMP 97.5; O2SAT 97
--- NOTE | 2025-09-17 12:57 | DVHPN2 ---
Subjective I am assuming the care of the patient from today onwards. Chart reviewed. 30-year-old female with a known history of anxiety and depression disorder presented to the hospital with a intractable abdominal pain found to have 1.8 cm history of cecal node, with a small lymph node in the mesentery close to sigmoid colon. Patient has stated that she has a lower abdominal pain worsening for last two days. Changes from previous H/P or p: No Changes Eyes: No Pain, No Vision change, No Conjunctivae inflammation, No Eyelid inflammation, No Other, No Redness ENT: No Ear pain, No Ear discharge, No Nose pain, No Nose discharge, No Nose congestion, No Mouth pain, No Mouth swelling, No Throat pain, No Throat swelling, No Other Cardiovascular: No Chest Pain, No Palpitations, No Orthopnea, No Paroxysmal Noc. Dyspnea, No Edema, No Lt Headedness, No Other Respiratory: No Cough, No Dry, No Shortness of breath, No SOB with excertion, No Wheezing, No Hemoptysis, No Pleuritic Pain, No Sputum, No Other Gastrointestinal: Nausea; No Vomiting; Abdominal Pain; No Diarrhea, No Constipation, No Melena, No Hematochezia, No Other Genitourinary: No Dysuria, No Frequency, No Incontinence, No Hematuria, No Retention, No Other Musculoskeletal: No other, No neck pain, No shoulder pain, No arm pain, No back pain, No hand pain, No leg pain, No foot pain Skin: No Rash, No Lesions, No Jaundice, No Bruising, No Other Objective Vitals Vital Signs Date Time Temp Pulse Resp B/P (MAP) Pulse Ox O2 Delivery O2 Flow Rate FiO2 09/17/25 05:46 76 16 118/74 09/17/25 01:00 98.0 97 98.0 09/16/25 20:00 Room Air* 0 21 Intake/Output Intake and Output 09/17/25 07:00 Intake Total 300 ml Balance 300 ml Intake Oral 100 ml IV Total 200 ml # Voids 3 Exam HEENT pupils are reactive Neck is supple CV is S1-S2 regular rate and rhythm Respiratory diminished breath sounds bases GI positive bowel sounds soft mildly tender in the lower abdomen in the hypogastric region with a minimal guarding no rigidity Extremities no edema [employer]GER no motor deficit Medications Current Medications Medications Dose Ordered Sig/Nathan Route Start Time Stop Time Status Last Admin Dose Admin Sodium Chloride 1,000 ml @ 120 mls/hr Q8H20M IV 09/16/25 12:15 09/16/25 13:00 120 MLS/HR Ondansetron HCl 4 mg Q4HP PRN IV 09/16/25 12:15 Morphine Sulfate 2 mg Q4HPRN PRN IV 09/16/25 12:15 09/17/25 05:16 2 MG Insulin Human Lispro AC SC 09/16/25 17:00 09/17/25 12:45 1 UNITS Dextrose 50 ml UD IV 09/16/25 12:45 Diagnostic Test (Pha) 1 strip ACHS 09/16/25 17:00 09/17/25 12:46 1 STRIP Ceftriaxone Sodium 50 ml @ 100 mls/hr DAILY@09 IV 09/17/25 09:00 09/17/25 08:22 100 MLS/HR Metronidazole 100 ml @ 100 mls/hr Q8HR IV 09/16/25 22:00 09/17/25 05:14 100 MLS/HR Insulin Human Lispro 8 units AC SC 09/16/25 17:00 09/17/25 12:46 8 UNITS Insulin Glargine 25 units [facility] 09/16/25 22:00 09/16/25 21:26 25 UNITS Laboratory Results Laboratory Tests 09/17/25 07:26 Chemistry Test 09/16/25 13:09 09/17/25 07:26 Calcium Level 9.0 mg/dL (8.7-10.4) 8.7 mg/dL (8.7-10.4) HgA1c, TSH Test 09/16/25 13:09 Hemoglobin A1c 12.3 % A1C (<5.7) H Thyroid Stimulating Hormone (TSH) 0.57 uIU/mL (0.55-4.78) Urinalysis Test 09/16/25 03:51 Urine Color Colorless (Yellow) Urine Clarity Clear (Clear) Urine pH 7.0 (5.0-9.0) Urine Specific [place] 1.038 (1.001-1.035) Urine Protein Negative (Negative) Urine Ketones Negative (Negative) Urine Blood 3+ /uL (Negative) H Urine Nitrite Negative (Negative) Urine Bilirubin Negative (Negative) Urine Urobilinogen Normal mg/dL (Negative) Urine Leukocyte Esterase Negative /uL (Negative) Urine RBC 231 /hpf (0 - 4) Urine Microscopic WBC 4 /HPF (0-5) Urine Squamous Epithelial Cells Few /hpf (<5) Urine Bacteria None seen /hpf (None Seen) Urine Glucose 4+ mg/dL (Normal) H Urine Test Negative (Negative) Assessment/Plan Assessment/Plan 30-year-old female with a known history of diabetes mellitus type 2, hypertension, anxiety and depression disorder who initially presented to the hospital with a intractable abdominal pain found to have 1. Intractable abdominal pain likely mesenteric lymphadenitis 2. 1.8 cm inés mass behind the cecum suspect reactive lymphadenitis, rule out lymphoma 3. Hyperglycemia in the setting of diabetes mellitus type 2 4. Hypertension 5. Anxiety and depression disorder currently compensated 6. Lactic acidosis 7. Morbid obesity classII -clear liquid diet, advance to full liquid diet as tolerated, GI consultation -check hemoglobin A1c. Plan discussed with: Patient Date of Service: Sep 17, 2025 Billing Provider: GABRIEL LAGOS MD Common Visit Codes: [id number] INP/OBS CARE(HIGH) GABRIEL LAGOS MD Sep 17, 2025 12:57
[2025-09-17 13:30] VITALS: BP 105/65; PULSE 90; RESP 18; TEMP 97.8; O2SAT 100
[2025-09-17 17:00] VITALS: BP 127/76; PULSE 96; RESP 18; TEMP 98.4; O2SAT 100
[2025-09-17 21:00] VITALS: BP 123/69; PULSE 74; RESP 20; TEMP 98.2; O2SAT 93
[2025-09-17 21:47] VITALS: BP 132/55; PULSE 78; RESP 18; TEMP 98.3; O2SAT 90
[2025-09-18 01:08] VITALS: BP_SYST 114; BP_SYST 142; BP_DIAS 71; BP_DIAS 94; PULSE 59; PULSE 74; RESP 18; TEMP 97.9; TEMP 98.6; O2SAT 100; O2SAT 91
[2025-09-18] MEDS: ONDANSETRON HCL 4 MG/2 ML VIAL IV PRN (02:13)
[2025-09-18] MEDS: ACETAMINOPHEN 325 MG TAB PO PRN (03:27)
[2025-09-18 05:14] VITALS: BP 130/94; PULSE 75; RESP 17; TEMP 97.5; O2SAT 95
[2025-09-18 08:00] VITALS: PULSE 68; RESP 16; O2SAT 96
[2025-09-18 09:00] VITALS: BP 99/63; PULSE 68; RESP 16; TEMP 97.7; O2SAT 96
[2025-09-18 12:53] VITALS: BP 113/72; PULSE 70; RESP 17; TEMP 98.4; O2SAT 94
--- NOTE | 2025-09-18 14:04 | DVHDS2 ---
Discharge Summary Date of Admission Sep 16, 2025 at 12:03 Date of Discharge: Sep 18, 2025 Labs/Diagnostic Data: Laboratory Results Test 09/18/25 11:39 09/17/25 07:26 09/16/25 13:09 09/16/25 04:03 POC Glucose 151 mg/dl (70-106) White Blood Count 6.9 10^3/uL (4.4-10.8) Red Blood Count 4.48 10^6/uL (4.0-5.20) Hemoglobin 12.5 g/dL (12.2-16.2) Hematocrit 37.2 % (36.0-46.0) Mean Corpuscular Volume 83.0 fL (80.0-100.0) Mean Corpuscular Hemoglobin 28.0 pg (28.0-32.0) Mean Corpuscular Hemoglobin Concent 33.7 g/dL (32.0-36.0) Red Cell Distribution Width 13.7 % (11.8-14.3) Platelet Count 187 10^3/uL (140-450) Mean Platelet Volume 8.0 fL (6.9-10.8) Neutrophils (%) (Auto) 58.4 % (37.0-80.0) Lymphocytes (%) (Auto) 29.3 % (10.0-50.0) Monocytes (%) (Auto) 5.3 % (0.0-12.0) Eosinophils (%) (Auto) 5.7 % (0.0-7.0) Basophils (%) (Auto) 1.3 % (0.0-2.0) Neutrophils # (Auto) 4.0 10 ^3/uL (1.6-8.6) Lymphocytes # (Auto) 2.0 10 ^3/uL (0.4-5.4) Monocytes # (Auto) 0.4 10 ^3/uL (0-1.3) Eosinophils # (Auto) 0.4 10 ^3/uL (0-0.8) Basophils # (Auto) 0.1 10 ^3/uL (0-0.2) Nucleated Red Blood Cells 0.1 % Sodium Level 138 mmol/L (136-145) Potassium Level 3.7 mmol/L (3.5-5.1) Chloride Level 107 mmol/L (98-107) Carbon Dioxide Level 23 mmol/L (20-31) Anion Gap 8 (5-15) Blood Urea Nitrogen 6 mg/dL (9-23) Creatinine 0.52 mg/dL (0.550-1.02) Glomerular Filtration Rate Calc 128 mL/min (>90) BUN/Creatinine Ratio 11.5 (10.0-20.0) Serum Glucose 239 mg/dL (74-106) Calcium Level 8.7 mg/dL (8.7-10.4) Lactate Dehydrogenase 235 U/L (120-246) Carcinoembryonic Antigen 0.84 ng/mL (<=5.0) Erythrocyte Sedimentation Rate 11 mm/hr (0-20) Hemoglobin A1c 12.3 % A1C (<5.7) C-Reactive Protein High Sensitivity 0.59 mg/dL (<1.0) Beta-Hydroxybutyric Acid 0.135 mmol/L (< 0.4) Thyroid Stimulating Hormone (TSH) 0.57 uIU/mL (0.55-4.78) Lactic Acid Level 1.1 mmol/L (0.4-2.0) Test 09/16/25 03:51 09/16/25 02:05 Urine Color Colorless (Yellow) Urine Clarity Clear (Clear) Urine pH 7.0 (5.0-9.0) Urine Specific [place] 1.038 (1.001-1.035) Urine Protein Negative (Negative) Urine Ketones Negative (Negative) Urine Blood 3+ /uL (Negative) Urine Nitrite Negative (Negative) Urine Bilirubin Negative (Negative) Urine Urobilinogen Normal mg/dL (Negative) Urine Leukocyte Esterase Negative /uL (Negative) Urine RBC 231 /hpf (0 - 4) Urine Microscopic WBC 4 /HPF (0-5) Urine Squamous Epithelial Cells Few /hpf (<5) Urine Bacteria None seen /hpf (None Seen) Urine Glucose 4+ mg/dL (Normal) Urine Test Negative (Negative) Urine Opiates Screen Neg (NEGATIVE) Urine Fentanyl Screen Neg (NEGATIVE) Urine Barbiturates Screen Neg (NEGATIVE) Urine Phencyclidine Screen Neg (NEGATIVE) Urine Amphetamines Screen Neg (NEGATIVE) Urine Benzodiazepines Screen Neg (NEGATIVE) Urine Cocaine Screen Neg (NEGATIVE) Urine Cannabinoids Screen Neg (NEGATIVE) Total Bilirubin 0.4 mg/dL (0.2-1.0) Aspartate Amino Transferase (AST) 8 U/L (13-40) Alanine Aminotransferase (ALT) 19 U/L (7-40) Alkaline Phosphatase 129 U/L (46-116) Total Protein 7.3 g/dL (5.7-8.2) Albumin 4.5 g/dL (3.2-4.8) Lipase 37 U/L (12-53) Vitamin B12 Level 374 pg/mL (211-911) Vitamin D 25-Hydroxy 21.0 ng/mL (30.0-100) Other Laboratory Tests 09/17/25 07:26 Brief Hx & Hospital Course: 30-year-old female with a known history of diabetes mellitus type 2, hypertension, anxiety and depression disorder who initially presented to the hospital with a intractable abdominal pain found to have mesenteric lymphadenitis with a 1.8 cm mass behind the cecum which was likely reactive lymphadenitis. Patient also has a known history of diabetes mellitus type 2 hypertension anxiety and depression disorder. Patient's anxiety and depression were compensated. Patient was pending GI evaluation for possible colonoscopy but patient left against medical advice before completion of workup and treatment. I talked to Efren patient's RN who will call the patient to make sure she gets outpatient follow up with the GI for colonoscopy and may consider inés biopsy if indicated. Condition at Discharge: Undetermined Final Diagnosis/Problems List Mesenteric lymphadenitis 1.8 cm inés mass behind the cecum Hyperglycemia in the setting of diabetes mellitus type 2 Patient left against medical advice Discharge Disposition: AMA SNF Discharge Will this Physician continue t: No Discharge Instruct/Medications Scheduled Vit W/ Fe Carbonyl-Fe (Pnv-Total), 1 TAB PO DAILYP, (Reported) Discharge Statement: "Patient was advised to return to the ER or call 911 if any headaches, dizziness, shortness of breath, chest pain, abdominal pain, bleeding, fevers, or worsening of medical condition. Patient was counseled about treatment plan, medications, possible side effects, patientverbalized understanding. All questions were answered to the best of my ability. This discharge took greater then 30 minutes in planning, reviewing documentation, counseling the patient, and discussing with other team members." ASSESSMENT ASSESSMENT Assessment Date of Service: Sep 18, 2025 Billing Provider: GABRIEL LAGOS MD Common Visit Codes: [id number] DISCH DAY <30MIN GABRIEL LAGOS MD Sep 18, 2025 14:04
== END 2025-09-18 14:00 | disposition left against medical advice (07) | DRG 254 ==
LOC: ER 00:08 → OVERFLOW 12:03 → EAST 09-17 21:27
PROVIDERS: ADMIT Internal Medicine; ATTEND Internal Medicine
DX: I88.0 Nonspecific mesenteric lymphadenitis (principal); E87.20 Acidosis, unspecified; E11.65 Type 2 diabetes mellitus with hyperglycemia; F32.A Depression, unspecified; I10 Essential (primary) hypertension; J45.909 Unspecified asthma, uncomplicated; E66.01 Morbid (severe) obesity due to excess calories; F41.9 Anxiety disorder, unspecified; F17.210 Nicotine dependence, cigarettes, uncomplicated; Z53.29 Procedure and treatment not carried out because of patient's decision for other reasons; K63.9 Disease of intestine, unspecified; Z32.02 Encounter for pregnancy test, result negative; R31.9 Hematuria, unspecified; Z79.4 Long term (current) use of insulin; Z98.891 History of uterine scar from previous surgery; Z68.36 Body mass index [BMI] 36.0-36.9, adult; Z88.1 Allergy status to other antibiotic agents; Z79.899 Other long term (current) drug therapy
CPT/HCPCS: 36415; 74176; 76856; 80048; 80053; 80307; 81001; 81025; 82010; 82306; 82378; 82607; 82962; 83036; 83605; 83615; 83690; 84443; 85025; 85652; 86141; 96361; 96374; 96375; G0378; J1815; J1885; J2405; J3490